=== PATIENT | female | born 1940 | race Caucasian/White ===

== ENCOUNTER 2024-05-31 14:19 | Emergency (ER) | payer MEDICARE, SELFPAY ==
[2024-05-31] VITALS (10 sets, daily range): BP systolic 79–127; BP diastolic 60–81; PULSE 62–83; RESP 18; TEMP 36.4; O2SAT 89–100
--- NOTE | ~2024-05-31 | XR_ITS ---
XR hip RT 2V w AP pelvis Ordering provider: Archana Edmond History: . fall . Comparison: None. FINDINGS: BONES: No acute fracture or dislocation. HIP JOINT SPACES: Bilateral moderate to severe osteoarthritic changes. SACROILIAC JOINT SPACES/LUMBAR SPINE: The sacroiliac joint spaces are normal. Mild degenerative ayala es of the visualized lower lumbar spine. PUBIC SYMPHYSIS: Pubic symphysitis. SOFT TISSUES: Normal. IMPRESSION: No acute osseous abnormality pelvis and right hip. Reviewed, dictated and finalized at location A.
--- NOTE | ~2024-05-31 | XR_ITS ---
CHEST RADIOGRAPH, PA AND LATERAL CLINICAL HISTORY: fall . COMPARISON: None available TECHNIQUE: PA and lateral views of the chest. FINDINGS The cardiomediastinal silhouette is unremarkable. The lungs are clear. Diffuse bony demineralization. IMPRESSION: No focal infiltrate or effusion. Reviewed, dictated and finalized at location A.
--- NOTE | ~2024-05-31 | CT_ITS ---
CT cervical spine wo con Ordering provider: Archana Edmond PA-C History: . fall . Comparison: None. Technique: CT of the cervical spine was performed without contrast. Sagittal and coronal reformatted images were also obtained and reviewed. Automated exposure control and iterative reconstruction giselle hnique were employed. The dose-length product was 175.83 mGy-cm. FINDINGS: VERTEBRAE: No acute fracture. The occipital condyles are intact. . Subluxation is seen with the odon toid process seen slightly anterior to the clivus tip which is most likely chronic with adjacent oste oarthritic changes. Postoperative changes seen posteriorly. Minimal anterolisthesis at the level of C3-C4. DISC SPACES: Degenerative disc disease at the level of C3-C4, C4-C5, C5-C6 and C6-C7. Multilevel unco vertebral joint osteoarthritic changes. Multilevel intervertebral foraminal narrowing. PARASPINOUS SOFT TISSUES: Normal. IMPRESSION: No acute osseous abnormality cervical spine. Multilevel degenerative disc disease. Reviewed, dictated and finalized at location A.
--- NOTE | ~2024-05-31 | CT_ITS ---
CT brain wo con Ordering provider: Archana Edmond PA-C History: 83 years Female with . fall . Comparison: None. Technique: CT of the head without contrast. Radiation reduction technique utilized. The dose-length p roduct was 681 mGy-cm. FINDINGS: BRAIN PARENCHYMA AND CSF SPACES: Mild leukoaraiosis and diffuse cortical atrophy. Mild atheromatous d isease. No midline shift, mass effect or hemorrhage. The brain parenchyma and CSF spaces are otherwi se normal. Partial empty sella turcica. VISUALIZED PARANASAL SINUSES: Well aerated. MASTOIDS: Well aerated. BONES: The bones appear intact. SOFT TISSUES: Visualized nasopharynx is normal. Superficial soft tissues are normal. IMPRESSION: No acute intracranial findings. Reviewed, dictated and finalized at location A.
--- NOTE | ~2024-05-31 | XR_ITS ---
XR knee RT 3V Ordering provider: Kg Armenta MD History: . fall, knee pain . Comparison: None. FINDINGS: BONES: Comminuted fracture of the distal metaphysis of the right femur with displaced fragments. JOINT SPACES: Total knee arthroplasty. SOFT TISSUES: Soft tissue swelling seen anteriorly IMPRESSION: Comminuted fracture of the distal metaphysis of the right femur. Reviewed, dictated and finalized at location A.
--- NOTE | 2024-05-31 15:37 | ED_ITS ---
HPI - Fall General Chief Complaint: Fall <LEIF Coughlin Last Filed: 05/31/24 19:05> Stated Complaint: Fall, Rt knee injury, poss UTI, AMS <LEIF Coughlin Last Filed: 05/31/24 19:05> Time Seen by Provider: 05/31/24 15:37 <LEIF Coughlin Last Filed: 05/31/24 19:05> Focused HPI: This is a 83 year old female that presents to the ER after an unwitnessed fall. Reportedly patient was found on the floor. She largely complains of right knee pain. History of dementia. Reportedly they are concerned for a UTI as she seems more confused than usual. GENERAL: Elderly, well-nourished, and in no acute distress. HEAD: Normocephalic, atraumatic. CHEST: Clear to auscultation. ?No respiratory distress. HEART: Regular rate and rhythm.? NEURO: ?Alert and oriented x1. Patient screened in triage and initial orders placed.? ?Additional care and disposition to be based upon?diagnostic testing and treatment. <LEIF Coughlin Last Filed: 05/31/24 19:05> Focused HPI: This is a 83 year old female that presents to the ER after an unwitnessed fall. Reportedly patient was found on the floor. She largely complains of right knee pain. History of dementia. Reportedly they are concerned for a UTI as she seems more confused than usual. GENERAL: Elderly, well-nourished, and in no acute distress. HEAD: Normocephalic, atraumatic. CHEST: Clear to auscultation. ?No respiratory distress. HEART: Regular rate and rhythm.? NEURO: ?Alert and oriented x1. Patient screened in triage and initial orders placed.? ?Additional care and disposition to be based upon?diagnostic testing and treatment. <LEIF Flores Last Filed: 05/31/24 19:10> Source: patient, family and old records reviewed <LEIF Flores Last Filed: 05/31/24 19:10> Mode of arrival: EMS <LEIF Flores Last Filed: 05/31/24 19:10> Limitations: dementia <Archana Edmond PA-C - Last Filed: 05/31/24 19:05> History of Present Illness HPI Narrative: Agree with above HPI. Hx of R knee replacement approx 15 years ago at [facility]. Daughter at bedside reports that patient fell in the bathroom today. Patient typically requires a walker for assistance with ambulation. Patient is not on any anticoagulation. <Mar Srinivasan PA-C - Last Filed: 05/31/24 19:10> Related Data Allergies/Adverse Reactions: Allergies Allergy/AdvReac Type Severity Reaction Status Date / Time cephalexin Allergy Intermediate Hives Verified 05/31/24 14:23 codeine Allergy Intermediate Hives Verified 05/31/24 14:23 Penicillins Allergy Intermediate Hives Verified 05/31/24 14:23 Sulfa (Sulfonamide Allergy Intermediate Hives Verified 05/31/24 14:23 Antibiotics) <Archana Edmond PA-C - Last Filed: 05/31/24 19:05> Review of Systems 2 Review of Systems: All systems reviewed & are unremarkable except as noted in HPI. <Mar Srinivasan PA-C - Last Filed: 05/31/24 19:10> All systems reviewed & are unremarkable except as noted in HPI and below < Mar Srinivasan PA-C - Last Filed: 05/31/24 19:10> [facility] Past Medical History Medical History: Medical History (Updated 05/31/24 @ 19:05 by Archana Edmond PA-C) History of dementia History of hypertension History of hypothyroidism <Archana Edmond PA-C - Last Filed: 05/31/24 19:05> Surgical History Surgical History: Surgical History (Updated 05/31/24 @ 19:07 by Mar Srinivasan PA-C) History of total right knee replacement <Archana Edmond PA-C - Last Filed: 05/31/24 19:05> Exam 2 Narrative: GENERAL: Elderly, frail, non-toxic, in no acute distress. HEAD: Normocephalic, atraumatic. RESPIRATORY: Airway patent, respirations nonlabored. Clear to auscultation bilaterally, no rales, rhonchi, wheezing. CARDIOVASCULAR: Regular rate and rhythm without murmurs, rubs, or gallops. Pedal pulses strong and intact. MUSCULOSKELETAL: Limited range of motion of right lower extremity due to pain, fullness to R knee with localized swelling, no bruising present. Diffuse tenderness to palpation around right superior knee joint, distal femur region. No appreciable tenderness throughout R hip joint. Able to wiggle toes. Sensation intact throughout extremity. SKIN: Warm, dry, normal color. NEURO: A&O X2, unsure of year - knows name, birthday, hospital setting. Speech clear. Cranial nerves II-XII grossly intact. No ataxic movements. PSYCHIATRIC: Appropriate mood and affect. Normal interaction. <Mar Srinivasan PA-C - Last Filed: 05/31/24 19:10> Course VISUAL ARTIST/PA Physician Supervision This visit was performed by both a physician and an APC. I performed all aspects of the MDM as documented. <Fei Rick MD - Last Filed: 05/31/24 19:02> Vital Signs Vital signs: Vital Signs Temperature 97.5 F L 05/31/24 14:40 Pulse Rate 83 05/31/24 14:40 Respiratory Rate 18 05/31/24 14:40 Blood Pressure 119/81 05/31/24 14:40 Pulse Oximetry 96 05/31/24 14:40 Oxygen Delivery Room Air 05/31/24 14:40 Temperature 97.5 F L 05/31/24 14:40 Pulse Rate 83 05/31/24 14:40 Respiratory Rate 18 05/31/24 17:30 Blood Pressure 79/65 L 05/31/24 18:48 Pulse Oximetry 100 05/31/24 18:49 Oxygen Delivery Room Air 05/31/24 14:40 <Archana Edmond PA-C - Last Filed: 05/31/24 19:05> Vital Signs Temperature 97.5 F L 05/31/24 14:40 Pulse Rate 83 05/31/24 14:40 Respiratory Rate 18 05/31/24 14:40 Blood Pressure 119/81 05/31/24 14:40 Pulse Oximetry 96 05/31/24 14:40 Oxygen Delivery Room Air 05/31/24 14:40 Temperature 97.5 F L 05/31/24 14:40 Pulse Rate 83 05/31/24 14:40 Respiratory Rate 18 05/31/24 17:30 Blood Pressure 79/65 L 05/31/24 18:48 Pulse Oximetry 100 05/31/24 18:49 Oxygen Delivery Room Air 05/31/24 14:40 <Mar Srinivasan PA-C - Last Filed: 05/31/24 19:10> Vital Signs Temperature 97.5 F L 05/31/24 14:40 Pulse Rate 83 05/31/24 14:40 Respiratory Rate 18 05/31/24 14:40 Blood Pressure 119/81 05/31/24 14:40 Pulse Oximetry 96 05/31/24 14:40 Oxygen Delivery Room Air 05/31/24 14:40 Temperature 97.5 F L 05/31/24 14:40 Pulse Rate 83 05/31/24 14:40 Respiratory Rate 18 05/31/24 17:30 Blood Pressure 79/65 L 05/31/24 18:48 Pulse Oximetry 100 05/31/24 18:49 Oxygen Delivery Room Air 05/31/24 14:40 <Fei Rick MD - Last Filed: 05/31/24 19:02> MDM - Fall MDM Narrative Medical decision making narrative: Patient presented to ED status post unwitnessed fall at care home, history of dementia. Ambulates w/ walker. Pain to right knee. Vital signs are stable upon arrival. Patient neurovascularly intact. No focal deficits appreciated on exam. Patient is a poor historian. CT brain and cervical spine were obtained without traumatic findings. CXR clear. X-ray of right hip/pelvis negative. X-ray of right knee showing periprosthetic distal femur fracture. Patient with good pedal pulses. She has history of right knee replacement approximately 15 years ago. Family states this was performed at [facility] by a surgeon who has since retired. Patient denies any other areas of pain. Family reports that patient typically ambulates with a walker and does very well with this usually. Reports she was not using her walker today. Discussed lab and imaging findings with patient and family at bedside and via phone. Family is unsure whether they would want patient to undergo surgery, but would be interested in hearing their options. Will discuss with [facility] as trauma. Discussed case with Dr. Kwong, EDP @ [facility], who will accept patient for transfer pending facility off red list. They are currently on red status and will call back in 2 hours to determine if able to transfer. 1830 - Patient accepted for transfer, ED-ED. Family updated on plan. Will place patient in knee immobilizer for transport. Given Fentanyl and fluids here. < Mar Srinivasan PA-C - Last Filed: 05/31/24 19:10> Medical Records Attestation: I reviewed the patient's medical records. <Mar Srinivasan PA-C - Last Filed: 05/31/24 19:10> Lab Data Attestation: I reviewed the patient's lab results. <Mar Srinivasan PA-C - Last Filed: 05/31/24 19:10> Result diagrams: 05/31/24 17:03 05/31/24 17:03 <Archana Edmond PA-C - Last Filed: 05/31/24 19:05> Labs: Lab Results 05/31/24 Range/Units 17:03 WBC 9.8 (4.5-10.0) K/mm3 RBC 3.75 L (4.2-5.4) M/mm3 Hgb 12.1 (12.0-15.0) g/dL Hct 37.5 (37.0-47.0) % MCV 100.0 (80-100) fl MCH 32.3 (26-34) pg MCHC 32.3 (32-36) g/dl RDW 11.4 L (11.5-14.5) % Plt Count 186 (150-375) k/mm3 MPV 10.1 (7.4-10.4) fl Immature Gran % (Auto) 0.3 (0-0.5) % Neut % (Auto) 88.2 H (45.5-73.1) % Lymph % (Auto) 7.1 L (18.3-44.2) % [place] % (Auto) 3.8 (2.6-8.5) % Eos % (Auto) 0.4 (0-4.4) % Baso % (Auto) 0.2 (0.2-1.2) % Lymph # (Auto) 0.69 L (0.9-3.2) K/mm3 [place] # (Auto) 0.4 (0.1-0.6) K/mm3 Eos # (Auto) 0.0 (0-0.3) K/mm3 Baso # (Auto) 0.0 (0.0-0.1) K/mm3 Abs Immat Gran (auto) 0.03 (0.00-0.031) K/mm3 Absolute Neuts (auto) 8.6 H (1.3-6.7) K/mm3 Absolute Nucleated RBC 0.000 (0.0-0.012) K/mm3 Nucleated RBC % 0.0 (0.0-0.2) % PT 14.1 (11.1-14.7) Seconds INR 1.0 APTT 26.8 (22.3-36.8) Seconds Sodium 137 (137-145) mmol/L Potassium 3.9 (3.4-5.0) mmol/L Chloride 100 (98-107) mmol/L Carbon Dioxide 25 (22-30) mmol/L Anion Gap 12 (4-12) mmol/L BUN 41 H (7-17) mg/dL Creatinine 1.42 H (0.7-1.0) mg/dL Estim Creat Clear Calc Not Reportable Estimated GFR 35 L (59 - ) Glucose 189 H (65-110) mg/dL Calcium 9.5 (8.4-10.2) mg/dL Total Bilirubin 0.6 (0.2-1.3) mg/dL AST 23 (14-36) U/L ALT 20 (6-35) U/L Alkaline Phosphatase 104 (38-126) U/L Total Protein 7.0 (6.3-8.2) g/dL Albumin 4.4 (3.5-5.1) g/dL <Archana Edmond PA-C - Last Filed: 05/31/24 19:05> Lab Results 05/31/24 Range/Units 17:03 WBC 9.8 (4.5-10.0) K/mm3 RBC 3.75 L (4.2-5.4) M/mm3 Hgb 12.1 (12.0-15.0) g/dL Hct 37.5 (37.0-47.0) % MCV 100.0 (80-100) fl MCH 32.3 (26-34) pg MCHC 32.3 (32-36) g/dl RDW 11.4 L (11.5-14.5) % Plt Count 186 (150-375) k/mm3 MPV 10.1 (7.4-10.4) fl Immature Gran % (Auto) 0.3 (0-0.5) % Neut % (Auto) 88.2 H (45.5-73.1) % Lymph % (Auto) 7.1 L (18.3-44.2) % [place] % (Auto) 3.8 (2.6-8.5) % Eos % (Auto) 0.4 (0-4.4) % Baso % (Auto) 0.2 (0.2-1.2) % Lymph # (Auto) 0.69 L (0.9-3.2) K/mm3 [place] # (Auto) 0.4 (0.1-0.6) K/mm3 Eos # (Auto) 0.0 (0-0.3) K/mm3 Baso # (Auto) 0.0 (0.0-0.1) K/mm3 Abs Immat Gran (auto) 0.03 (0.00-0.031) K/mm3 Absolute Neuts (auto) 8.6 H (1.3-6.7) K/mm3 Absolute Nucleated RBC 0.000 (0.0-0.012) K/mm3 Nucleated RBC % 0.0 (0.0-0.2) % PT 14.1 (11.1-14.7) Seconds INR 1.0 APTT 26.8 (22.3-36.8) Seconds Sodium 137 (137-145) mmol/L Potassium 3.9 (3.4-5.0) mmol/L Chloride 100 (98-107) mmol/L Carbon Dioxide 25 (22-30) mmol/L Anion Gap 12 (4-12) mmol/L BUN 41 H (7-17) mg/dL Creatinine 1.42 H (0.7-1.0) mg/dL Estim Creat Clear Calc Not Reportable Estimated GFR 35 L (59 - ) Glucose 189 H (65-110) mg/dL Calcium 9.5 (8.4-10.2) mg/dL Total Bilirubin 0.6 (0.2-1.3) mg/dL AST 23 (14-36) U/L ALT 20 (6-35) U/L Alkaline Phosphatase 104 (38-126) U/L Total Protein 7.0 (6.3-8.2) g/dL Albumin 4.4 (3.5-5.1) g/dL <Mar Srinivasan PA-C - Last Filed: 05/31/24 19:10> Lab Results 05/31/24 Range/Units 17:03 WBC 9.8 (4.5-10.0) K/mm3 RBC 3.75 L (4.2-5.4) M/mm3 Hgb 12.1 (12.0-15.0) g/dL Hct 37.5 (37.0-47.0) % MCV 100.0 (80-100) fl MCH 32.3 (26-34) pg MCHC 32.3 (32-36) g/dl RDW 11.4 L (11.5-14.5) % Plt Count 186 (150-375) k/mm3 MPV 10.1 (7.4-10.4) fl Immature Gran % (Auto) 0.3 (0-0.5) % Neut % (Auto) 88.2 H (45.5-73.1) % Lymph % (Auto) 7.1 L (18.3-44.2) % [place] % (Auto) 3.8 (2.6-8.5) % Eos % (Auto) 0.4 (0-4.4) % Baso % (Auto) 0.2 (0.2-1.2) % Lymph # (Auto) 0.69 L (0.9-3.2) K/mm3 [place] # (Auto) 0.4 (0.1-0.6) K/mm3 Eos # (Auto) 0.0 (0-0.3) K/mm3 Baso # (Auto) 0.0 (0.0-0.1) K/mm3 Abs Immat Gran (auto) 0.03 (0.00-0.031) K/mm3 Absolute Neuts (auto) 8.6 H (1.3-6.7) K/mm3 Absolute Nucleated RBC 0.000 (0.0-0.012) K/mm3 Nucleated RBC % 0.0 (0.0-0.2) % PT 14.1 (11.1-14.7) Seconds INR 1.0 APTT 26.8 (22.3-36.8) Seconds Sodium 137 (137-145) mmol/L Potassium 3.9 (3.4-5.0) mmol/L Chloride 100 (98-107) mmol/L Carbon Dioxide 25 (22-30) mmol/L Anion Gap 12 (4-12) mmol/L BUN 41 H (7-17) mg/dL Creatinine 1.42 H (0.7-1.0) mg/dL Estim Creat Clear Calc Not Reportable Estimated GFR 35 L (59 - ) Glucose 189 H (65-110) mg/dL Calcium 9.5 (8.4-10.2) mg/dL Total Bilirubin 0.6 (0.2-1.3) mg/dL AST 23 (14-36) U/L ALT 20 (6-35) U/L Alkaline Phosphatase 104 (38-126) U/L Total Protein 7.0 (6.3-8.2) g/dL Albumin 4.4 (3.5-5.1) g/dL <Fei Rick MD - Last Filed: 05/31/24 19:02> Imaging Data Attestation: I personally reviewed and interpreted this imaging study as follows: < Mar Srinivasan PA-C - Last Filed: 05/31/24 19:10> Radiologist's impression: ITS Impressions Head CT 05/31/24 16:24 IMPRESSION: No acute intracranial findings. Cervical Spine CT 05/31/24 16:40 IMPRESSION: No acute osseous abnormality cervical spine. Multilevel degenerative disc disease. Chest X-Ray 05/31/24 16:56 IMPRESSION: No focal infiltrate or effusion. Knee X-Ray 05/31/24 16:56 IMPRESSION: Comminuted fracture of the distal metaphysis of the right femur. Hip/Pelvis X-Ray 05/31/24 17:02 IMPRESSION: No acute osseous abnormality pelvis and right hip. <Mar Srinivasan PA-C - Last Filed: 05/31/24 19:10> ECG Data EKG #1: Attestation: I personally reviewed and interpreted this ECG as follows: <Mar Srinivasan PA-C - Last Filed: 05/31/24 19:10> ECG completion date: 05/31/24 <LEIF Flores Last Filed: 05/31/24 19:10> ECG completion time: 15:43 <LEIF Flores Last Filed: 05/31/24 19:10> EKG Interpretation: bradycardia (53), sinus rhythm, non-specific ST changes and RBBB < Mar Srinivasan PA-C - Last Filed: 05/31/24 19:10> Discharge Plan Discharge Clinical Impression: Fall from ground level Fracture of distal end of right femur Qualifiers: Encounter type: initial encounter Fracture type: closed Fracture morphology: o ther fracture Qualified Code(s): S72.491A - Other fracture of lower end of right femur, initial encounter for closed fracture Periprosthetic fracture around prosthetic knee Qualifiers: Encounter type: initial encounter Laterality: right Qualified Code(s): M97.11XA - Periprosthetic fracture around internal prosthetic right knee joint, initial encounter Dementia Qualifiers: Dementia type: unspecified type Dementia severity: unspecified severity D ementia behavioral or psychological symptom: unspecified whether behavioral, psychotic, or mood disturbance or anxiety Qualified Code(s): F03.90 - Unspecified dementia, unspecified severity, without behavioral disturbance, psychotic disturbance, mood disturbance, and anxiety <Archana Edmond PA-C - Last Filed: 05/31/24 19:05> Patient Disposition: Acute Care Hospital <Archana Edmond PA-C - Last Filed: 05/31/24 19:05> Condition: Stable <Archana Edmond PA-C - Last Filed: 05/31/24 19:05> Patient Language: Mauritanian <Archana Edmond PA-C - Last Filed: 05/31/24 19:05> Follow-up/Referrals: PHYSICIAN NOT ON STAFF,NONSTAFF [Non-Staff] - <LEIF Coughlin Last Filed: 05/31/24 19:05>
--- NOTE | 2024-05-31 15:38 | ECG_ITS ---
Test Date: 2024-05-31 15:43:53 Measurements Intervals [place] Rate: 53 P: 50 MN: 170 QRS: -4 QRSD: 99 T: 62 QT: 459 QTc: 433 Interpretive Statements SINUS BRADYCARDIA POSSIBLE LEFT ATRIAL ENLARGEMENT INCOMPLETE RIGHT BUNDLE BRANCH BLOCK MINIMAL Q WAVES- HIGH LATERAL LEADS BASELINE ARTIFACT- I, II, AVR BORDERLINE ECG No previous ECG available for comparison Electronically Signed On 05-31-2024 16:27:10 CDT by Andrew Lester D.O.
[2024-05-31 17:09] LABS: Basophils Percent Auto 0.2 % (0.2-1.2); Eosinophils Percent Auto 0.4 % (0-4.4); Hematocrit 37.5 % (37.0-47.0); Hemoglobin 12.1 g/dL (12.0-15.0); Immature Granulocyte Absolute 0.03 K/mm3 (0.00-0.031); Immature Granulocyte Percent A 0.3 % (0-0.5); Lymphocytes Absolute Auto 0.69 K/mm3 (0.9-3.2); Lymphocytes Percent Auto 7.1 % (18.3-44.2); Mean Corpuscular HGB Conc 32.3 g/dl (32-36); Mean Corpuscular Hemoglobin 32.3 pg (26-34); Mean Platelet Volume 10.1 fl (7.4-10.4); Monocytes Absolute Auto 0.4 K/mm3 (0.1-0.6); Monocytes Percent Auto 3.8 % (2.6-8.5); Neutrophils Absolute Auto 8.6 K/mm3 (1.3-6.7); Neutrophils Percent Auto 88.2 % (45.5-73.1); Platelet Count Result 186 k/mm3 (150-375); Red Blood Count 3.75 M/mm3 (4.2-5.4); Red Cell Distribution Width 11.4 % (11.5-14.5); White Blood Count 9.8 K/mm3 (4.5-10.0)
[2024-05-31 17:17] LABS: Alanine Aminotransferase 20 U/L (6-35); Albumin Level 4.4 g/dL (3.5-5.1); Alkaline Phosphatase 104 U/L (38-126); Anion Gap 12 mmol/L (4-12); Aspartate Amino Transferase 23 U/L (14-36); Bilirubin,Total 0.6 mg/dL (0.2-1.3); Blood Urea Nitrogen 41 mg/dL (7-17); Calcium 9.5 mg/dL (8.4-10.2); Carbon Dioxide 25 mmol/L (22-30); Chloride 100 mmol/L (98-107); Estimated Glomerular Filt Rate 35; Glucose 189 mg/dL (65-110); Potassium 3.9 mmol/L (3.4-5.0); Sodium 137 mmol/L (137-145)
[2024-05-31] MEDS: ACETAMINOPHEN 500 MG TABLET 1000 MG PO (17:30)
[2024-05-31 17:32] LABS: Prothrombin Time 14.1 Seconds (11.1-14.7)
[2024-05-31 17:33] LABS: Partial Thromboplastin Time 26.8 Seconds (22.3-36.8)
--- NOTE | 2024-05-31 18:00 | PC.NURSE ---
multiple attempts made to place hanks catheter. no flash present, balloon inflated appropriately with no urine draining. successful attempt made by tech staff members. flash present with hanks placement, hanks balloon inflated, no urine present in hanks at this time
[2024-05-31] MEDS: fentaNYL CITRATE INJ (*CRX) 100 MCG/2 ML VIAL 25 MCG IV PUSH (18:56)
[2024-05-31] MEDS: SODIUM CHLORIDE 0.9% IV 1,000 ML 999 ML IV CONT (19:09)
--- NOTE | 2024-05-31 19:40 | PC.NURSE ---
Rea - staff member from facility called for update on patient condition and plan of care, updated and given information on care of patient. called daughter to let her know that the patient was being picked up by transfer team and would be going to [place]
== END 2024-05-31 19:50 | disposition short-term general hospital (02) ==
PROVIDERS: Physician Assistant; Emergency Provider Physician Assistant
DX: S79.191A Other physeal fracture of lower end of right femur, initial encounter for closed fracture (principal); M97.11XA Periprosthetic fracture around internal prosthetic right knee joint, initial encounter; F03.90 Unspecified dementia, unspecified severity, without behavioral disturbance, psychotic disturbance, mood disturbance, and anxiety; I10 Essential (primary) hypertension; E03.9 Hypothyroidism, unspecified; Z96.651 Presence of right artificial knee joint; W18.30XA Fall on same level, unspecified, initial encounter; M50.31 Other cervical disc degeneration, high cervical region; R94.31 Abnormal electrocardiogram [ECG] [EKG]; R00.1 Bradycardia, unspecified; I45.10 Unspecified right bundle-branch block
CPT/HCPCS: 36415; 70450; 71046; 72125; 73502; 73562; 80053; 85025; 85610; 85730; 93005; 96361; 96374; 99285; A9270; J3010; J7030